=== PATIENT | male | born 1940 | race Caucasian/White ===

== ENCOUNTER → 2019-02-22 | Outpatient (CLI) | payer OTHER ==
[~2019-02-22] MED LIST: ALBU2.5V14 NEB; ALFU10TA3 PO; AMIO200T4 PO; APIX5TAB PO; ASPI81TA50 PO; BUDE10.2 IH; CHOL10003 PO; CYAN10005 PO; FINA5TAB4 PO; FOSI40TA4 PO; LEVO50TA5 PO; METF10007 PO; METF500T16 PO; POLY2500 PO; PSYL0.526 PO
--- NOTE | 2019-02-23 00:52 | PAIN ---
DATE OF SERVICE: 02/22/2019 INITIAL CONSULTATION FOR PAIN CLINIC CHIEF COMPLAINT: Low back and right lower extremity pain. HISTORY OF PRESENT ILLNESS: This is an 79-year-old male who presents with history of pain in the low back for many years, worse over the past 2 years or so. The patient reports his pain has been getting worse with walking, standing, changing positions, especially in the right side. It is a very sharp, aching pain that is dull, worse with standing and changing positions, better with sitting or lying down, does not awaken him from sleep at night, better with sleeping or lying down. It does not affect his bowel or bladder control, but does affect his ability to walk significantly. He is using a cane in his right hand to ambulate. The patient has had physical therapy. He has been doing some stretching and strengthening exercises on his own. The patient reports also that he has had facet joint injections and radiofrequency ablation at the [facility], of which neither one were helpful to decrease the pain on his right side. The patient reports he has had no other treatments at this time that he is aware of, except some epidural injections in the past. The patient is taking Tylenol up to 3000 mg a day, which decreased the pain only by about 20%. The patient describes the pain as aching and dull, sometimes shooting and stabbing in the right posterior hip, but generally not radiating to the leg further than the posterior gluteus. The patient rates his disability rate from 0-10, 10 being the worst and 8 with family home responsibilities, social activities, self-care and life support activities, and 1 with recreational activities. The patient did have MRI scan of the lumbar spine, demonstrating degenerative disk disease, with space narrowing at L4-L5 and L5-S1 more significantly, no disk herniation, with mild central canal stenosis at L2-L3 and moderate degenerative facet disease at L3 through L5-S1. PAST MEDICAL HISTORY: Significant for diabetes type 2, COPD, on home oxygen, hypertension, atrial fibrillation, and arthritis. PAST SURGICAL HISTORY: Previous lumbar surgery 15 years ago with left-sided symptoms at that time and previous hernia repair. CURRENT MEDICATIONS: Include metformin, psyllium, vitamin B12, vitamin D3, polyethylene glycol, alfuzosin, levothyroxine, fosinopril, finasteride, albuterol, amiodarone, Eliquis, Symbicort and daily baby aspirin, also Tylenol. FAMILY HISTORY: Significant for heart disease. SOCIAL HISTORY: The patient does not drink alcohol, does not smoke, and does not use any illegal, illicit or recreational drugs. He is single, lives locally and is currently retired. REVIEW OF SYSTEMS: The patient's review of systems is positive for those items mentioned in history of present illness. All systems reviewed and otherwise negative. It is complete, full and well documented on the patient's chart. PHYSICAL EXAMINATION: VITAL SIGNS: The patient's blood pressure is 145/79, pulse 62, respirations 18, temperature 97.8 degrees Fahrenheit. Height is 6 feet 2 inches, weight is 256 pounds. GENERAL: The patient is awake, alert, oriented, appropriate, very pleasant demeanor. HEENT: Head is normocephalic, atraumatic. Extraocular movements are intact and symmetrical. Oral cavity: Mucous membranes moist and pink. Dentition is intact. NECK: Shows anterior throat supple without palpable lymphadenopathy noted. Swallow reflex is symmetrical. CHEST: Shows normal with inspection. Breath sounds are clear to auscultation bilaterally. HEART: Shows S1, S2 clear. No murmurs auscultated. ABDOMEN: Obese, soft, nontender, nondistended. No palpable organomegaly is noted. No rebound or guarding demonstrated. BACK: Shows spine grossly in the midline, slight exaggeration of thoracic kyphosis and minor flattening of lumbar lordotic curvature. Lumbar paraspinous muscle shows symmetrical on inspection, with palpation shows some moderate tenderness inferiorly, more on the right than the left. No trigger points, no radiation of pain, no tenderness over the spinous processes. The patient has good rotational motion both laterally greater than 10 degrees right and left, as well as extension greater than 10 degrees, forward flexion 45 degrees without significant pain reported. Posterior superior iliac spine is severely tender on the right with palpation, but not the left. Also, the sacroiliac region on the right is very, very tender with palpation, but not on the left side. EXTREMITIES: The patient's lower extremities show deep tendon reflexes at 1+ in the patellar and tendo-calcaneus tendons. Motor exam is strong with 5/5 dorsiflexion, extension, quadriceps and hamstring flexion and symmetrical. Peripheral pulses are 1+ posterior tibial. No peripheral edema is noted. Lower extremities are warm and dry to touch, equal in color and appearance. The patient's Gaenslen's maneuver is positive on the right with posterior displacement and external rotation of the right hip and low back with leg over the bed, lower leg that is. Left side is negative. Percy's maneuvers are grossly negative bilaterally. The patient is able to stand, stand on his toes without significant loss of balance. He is using a cane in his right hand and does walk with a significant limp favoring his right lower extremity. SKIN: Shows warm and dry, good turgor. No edema. No sores, rashes or bruising. IMPRESSION: 1. This is an 79-year-old male with a long history of low back pain, status post lumbar surgery several years ago for left-sided radiculopathy, now with pain in the right sacroiliac joint consistent with sacroiliitis on the right side. 2. Arthritis. 3. Atrial fibrillation. 4. Hypertension. 5. Type 2 diabetes. 6. Anticoagulation therapy. PLAN: Options were discussed with the patient including conservative medical management, physical therapy, and interventional technique. He would like to pursue interventional techniques. We discussed a right-sided sacroiliac joint injection. 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 JAIMEE URIARTE MD DR: TRACEY/ely JOB#: [id number] / [id number]
== END | disposition home or self-care (01) ==
LOC: PNCL 08:14
PROVIDERS: ATTEND Anesthesiology
DX: M54.5 Low back pain (principal); M79.604 Pain in right leg; M19.90 Unspecified osteoarthritis, unspecified site; I48.91 Unspecified atrial fibrillation; I10 Essential (primary) hypertension; E11.9 Type 2 diabetes mellitus without complications; J44.9 Chronic obstructive pulmonary disease, unspecified; Z79.01 Long term (current) use of anticoagulants; Z99.81 Dependence on supplemental oxygen; Z98.890 Other specified postprocedural states; Z79.84 Long term (current) use of oral hypoglycemic drugs; Z79.899 Other long term (current) drug therapy
CPT/HCPCS: G0463

== ENCOUNTER → 2019-03-07 | Outpatient (CLI) | payer OTHER ==
[~2019-03-07] MED LIST changes: +BUPIVACAINE MPF 0.25% 10 ML VIAL. ONE; +CYAN-25 PO; -CYAN10005 PO; +IOHEXOL 180 MG/ML 10 ML VIAL. ONE; +methylPREDNISolone ACETATE 40 MG/ML VIAL. ONE; +methylPREDNISolone ACETATE 80 MG/ML VIAL. ONE
--- NOTE | 2019-03-08 03:49 | PAIN ---
DATE OF SERVICE: 03/07/2019 PROGRESS NOTE FOR PAIN CLINIC DIAGNOSES: 1. Bilateral sacroiliitis. 2. Lumbar degenerative disk disease. HISTORY OF PRESENT ILLNESS: The patient is an 79-year-old male who returns for followup status post initial evaluation and holding his Eliquis. He has been off of it for 3 days now and we were to proceed with bilateral sacroiliac joint injections. The patient reports his right side is much worse but his left side has become almost as bad since we last talked to him, which was 02/22/2019. The patient reports no new motor or sensory deficits, no new bowel or bladder incontinence or other complaints. The patient's pain is an 8 on a scale of 10 at its worst over the past week, 7 on average, 4 at its least and is a 7 today. It is aching, sharp, dull, burning, becoming more constant, worse with weightbearing, standing, walking or sitting for prolonged periods. The patient reports it has been awakening him from sleep and is a dull ache at night. PHYSICAL EXAMINATION: VITAL SIGNS: The patient's blood pressure 138/74, pulse 58, respirations are 18, temperature 97.7 degrees Fahrenheit, height is 6 feet 2 inches, weight is 253 pounds. GENERAL: The patient is awake, alert, oriented, appropriate, very pleasant demeanor. HEENT: Head is normocephalic, atraumatic. Extraocular movements are intact and symmetrical. Oral cavity: Mucous membranes moist and pink. Dentition is intact. NECK: Shows anterior throat supple. CHEST: Shows breath sounds clear to auscultation bilaterally. HEART: Shows S1, S2 clear. ABDOMEN: Soft, nontender, nondistended. BACK: Shows spine grossly in the midline, slight flattening of lumbar lordotic curvature. There is significant tenderness with palpation over the bilateral posterior superior iliac spines, especially the right, but also in the left, very severe pain over the superior aspect of the sacroiliac joint, but without specific radiation. The patient has good rotational motion of the lumbar spine, both laterally as well as extension and flexion without significant increase in pain. EXTREMITIES: Lower extremities show deep tendon reflexes at 1+ in the patellar and tendo-calcaneus tendons. Motor exam is strong with 5/5 dorsiflexion, extension and equal bilaterally. Peripheral pulses are 1+. No peripheral edema is noted bilaterally. Options were discussed with the patient. The patient's old chart was reviewed as his current medication regimen updated. Current review of systems updated today as well. We will proceed with bilateral sacroiliac joint injections using C-arm fluoroscopic guidance. Risks were again discussed including, but not limited to bleeding, infection, possibility of intravascular injection sequelae, spread of local anesthetic and numbness, side effects of steroid medication as well as exposure to fluoroscopy and poor results regarding pain control. The patient understands and wished to proceed. The patient will return to clinic in approximately 2 weeks for followup. She was counseled on return appointment, activity level and side effects to be aware of. DIAGNOSIS: Bilateral sacroiliitis. PROCEDURE: Bilateral sacroiliac joint injection using C-arm fluoroscopic guidance under sterile prep and drape using local anesthetic. MEDICATIONS INJECTED: A total of 120 mg of Depo-Medrol plus total of 6 mL of 0.25% bupivacaine and total of 3 mL of contrast. CONDITION AT DISCHARGE: Stable. The patient tolerated the procedure well, had no complications. JAIMEE URIARTE MD DR: TRACEY/ely JOB#: [id number] / [id number]
== END ==
LOC: PNCL 08:48
PROVIDERS: ATTEND Anesthesiology
DX: M46.1 Sacroiliitis, not elsewhere classified (principal); M51.36 Other intervertebral disc degeneration, lumbar region
CPT/HCPCS: 27096; J1030; J1040; J3490; Q9965; G0260

== ENCOUNTER → 2019-04-13 | Outpatient (CLI) | payer OTHER ==
[~2019-04-13] MED LIST changes: -IOHEXOL 180 MG/ML 10 ML VIAL. ONE; -methylPREDNISolone ACETATE 80 MG/ML VIAL. ONE
--- NOTE | 2019-04-14 00:08 | PAIN ---
DATE OF SERVICE: 04/13/2019 PROGRESS NOTE FOR PAIN CLINIC DIAGNOSES: 1. Bilateral sacroiliitis. 2. Lumbar degenerative disk disease. 3. Myofascial pain. HISTORY OF PRESENT ILLNESS: The patient is an 79-year-old male who returns for followup status post bilateral sacroiliac joint injections about 2 weeks ago. The patient reports still significant pain in the low back, but only on the right side at this time. The patient reports it is much more noticeable with walking, standing, changing positions, and sitting for more than 15-20 minutes. The patient reports it is worse with first thing in the morning, getting up out of bed, also with walking and changing positions or bending. The patient reports he has a burning pain, sharp and aching in the low back and the right side mostly. The patient reports his pain over the last week has been 7 on a scale of 10 at its worst, 4 on an average, 2 at its least, and is a 2 today. The patient reports it is better with sitting or lying down, does not awaken from sleep at night, and does not cause any loss of bowel or bladder incontinence. The patient reports that the sacroiliac joint injections were only very minimally improving the pain, but only for a few days after the injections. PHYSICAL EXAMINATION: VITAL SIGNS: Today, the patient's blood pressure is 141/70, pulse 78, respirations are 18, temperature 97.8 degrees Fahrenheit, height is 6 feet 2 inches, and weight is 234 pounds. GENERAL: The patient is awake, alert, oriented, appropriate, and very pleasant demeanor. HEENT: Shows normocephalic and atraumatic. Extraocular movements are intact and symmetrical. Oral cavity: Mucous membranes moist and pink. Dentition is intact. NECK: Shows anterior throat is supple without palpable lymphadenopathy noted. Swallow reflex symmetrical. CHEST: Shows normal on inspection. Breath sounds are clear to auscultation bilaterally. HEART: Shows S1, S2 clear. No murmurs auscultated. ABDOMEN: Soft, nontender, and nondistended. No palpable organomegaly is noted. No rebound or guarding demonstrated. BACK: Shows spine grossly in the midline. Normal appearing thoracic kyphosis and lumbar lordotic curvature. Lumbar paraspinous muscle shows symmetrical on inspection, on palpation shows some moderate tenderness diffusely in the right lumbar paraspinous musculature, is very firm rope-like musculature on the right side only compared to the left without specific radiation, but with significant pain with palpation. The patient shows good rotational motion; however, the lumbar spine both laterally as well as extension and flexion without significant increase in pain. EXTREMITIES: The patient's lower extremities show deep tendon reflexes 1+ in the patellar and tendo calcaneus tendons. Motor exam is strong with 5/5 dorsiflexion and extension, quadriceps, and hamstring flexion is symmetrical. Peripheral pulses are 1+ posterior tibia. No peripheral edema is noted. Options were discussed with the patient. The patient's old chart was reviewed as his current medication regimen updated and current review of systems updated today as well, and we will proceed with trigger point injections of the right paraspinous musculature and right gluteus musculature as identified. Risks were discussed including, but not limited to bleeding, infection, possibility of intravascular injection sequelae, spread of local anesthetic and numbness, side effects of steroid medication and poor results regarding pain control. The patient understands and wishes to proceed. The patient will return to clinic in approximately 2 weeks for followup. He was counseled on return appointment, activity level, and side effects to be aware of. DIAGNOSIS: Myofascial pain. PROCEDURE: Trigger point injections, right-sided lumbar paraspinous musculature and right-sided gluteus under sterile prep and drape using local anesthetic. MEDICATION INJECTED: A total of 6 mL of 0.25% bupivacaine and 40 mg total of Depo-Medrol after negative aspiration at each injection. CONDITION AT DISCHARGE: Stable. The patient tolerated the procedure well, had no complications. JAIMEE URIARTE MD DR: TRACEY/ely JOB#: [id number] / [id number]
== END ==
LOC: PNCL 11:04
PROVIDERS: ATTEND Anesthesiology
DX: M79.18 Myalgia, other site (principal); M46.1 Sacroiliitis, not elsewhere classified; M51.36 Other intervertebral disc degeneration, lumbar region
CPT/HCPCS: 20553; J1030; J3490

== ENCOUNTER → 2019-05-02 | Outpatient (CLI) | payer OTHER ==
[~2019-05-02] MED LIST changes: +IOHEXOL 180 MG/ML 10 ML VIAL. ONE; +LIDOCAINE 1% PF 2 ML VIAL. ONE; -methylPREDNISolone ACETATE 40 MG/ML VIAL. ONE; +methylPREDNISolone ACETATE 80 MG/ML VIAL. ONE
--- NOTE | 2019-05-02 14:13 | PAIN ---
DATE OF SERVICE: 05/02/2019 PROGRESS NOTE FOR PAIN CLINIC DIAGNOSES: 1. Bilateral sacroiliitis. 2. Lumbar degenerative disk disease. 3. Myofascial pain. 4. Right knee joint pain with osteoarthritis. HISTORY OF PRESENT ILLNESS: The patient is an 79-year-old male who returns for followup status post trigger point injections with about a 75% improvement. The patient reports some pain in the right posterior hip, but only minimal. The patient reports his chief complaint today is his right knee, which we discussed with him on his last visit. Significant pain with walking, standing, changing positions, especially putting all his weight on his right leg such as in case stepping on the stair or curb and significant pain with ambulation. The patient reports it is better with lying down, sitting, even with getting the weight off of his knee, the pain is almost gone. The patient reports the pain is worse with 4 on a scale of 10, over the past week average 4 and a 3 at its least and is a 4 today. The patient reports it is sharp, aching, dull and burning at times, again with weightbearing much worse. No new motor or sensory deficits; however, no new bowel or bladder incontinence or other complaints. PHYSICAL EXAMINATION: VITAL SIGNS: The patient's blood pressure 122/68, pulse 62, respirations 18, temperature 97.8 degrees Fahrenheit, height is 6 feet 2 inches, weight is 248 pounds. GENERAL: The patient is awake, alert, oriented, appropriate, very pleasant demeanor. HEENT: Shows normocephalic, atraumatic. Extraocular movements are intact and symmetrical. Oral cavity: Mucous membranes moist and pink. Dentition is intact. NECK: Shows anterior throat supple without palpable lymphadenopathy noted. Swallow reflex symmetrical. CHEST: Shows normal on inspection. Breath sounds clear to auscultation bilaterally. HEART: Shows S1, S2 clear. No murmurs auscultated. ABDOMEN: Soft, nontender, nondistended. No palpable organomegaly is noted. No rebound or guarding demonstrated. BACK: Shows spine grossly in the midline. Lumbar paraspinous muscle shows symmetrical on inspection, with palpation shows some moderate tenderness diffusely bilaterally, but only diffusely. No specific trigger point regions are identified, but some mild tenderness over the posterior superior iliac spine on the right and left, but only mildly with deep palpation. EXTREMITIES: The patient's lower extremities show deep tendon reflexes 1+ in the patellar and tendo calcaneus tendons. Motor exam is strong with 5/5 dorsiflexion, extension, quadriceps and hamstring flexion and equal. The patient's right knee shows some moderate tenderness with palpation over the medial collateral ligament with deep palpation, but no radiation. Left side is nontender. The patient has good range of motion, both actively and passively in the right knee without ratcheting or crepitus. Peripheral pulses are 1+ posterior tibia. No peripheral edema is noted bilaterally. Options were discussed with the patient. The patient's old chart was reviewed as his current medication regimen updated. Current review of systems updated today as well. We will proceed with a right intra-articular knee joint injection today with fluoroscopic guidance. Risks were again discussed including, but not limited to bleeding, infection, possibility of intravascular injection sequelae, spread of local anesthetic and numbness, side effects of steroid medication, exposure to fluoroscopy and poor results regarding pain control. The patient understands and wished to proceed. The patient will return to clinic in approximately 2 weeks for followup. She was counseled on return appointment, activity level and side effects to be aware of. 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 PROCEDURE: Right intra-articular knee joint injection using C-arm fluoroscopic guidance under sterile prep and drape using local anesthetic. MEDICATION INJECTED: A total of 3 mL of 0.25% bupivacaine, 80 mg Depo-Medrol and 1.5 mL of contrast. CONDITION AT DISCHARGE: Stable. The patient tolerated the procedure well, had no complications. JAIMEE URIARTE MD DR: TRACEY/ely JOB#: [id number] / [id number]
== END ==
LOC: PNCL 10:04
PROVIDERS: ATTEND Anesthesiology
DX: M17.11 Unilateral primary osteoarthritis, right knee (principal); M46.1 Sacroiliitis, not elsewhere classified; M79.18 Myalgia, other site; M51.36 Other intervertebral disc degeneration, lumbar region
CPT/HCPCS: 20610; 77002; J1040; J3490; Q9965

== ENCOUNTER → 2019-06-22 | Outpatient (CLI) | payer OTHER ==
[~2019-06-22] MED LIST changes: -BUPIVACAINE MPF 0.25% 10 ML VIAL. ONE; -IOHEXOL 180 MG/ML 10 ML VIAL. ONE; -LIDOCAINE 1% PF 2 ML VIAL. ONE; -methylPREDNISolone ACETATE 80 MG/ML VIAL. ONE
--- NOTE | 2019-06-23 01:12 | PAIN ---
DATE OF SERVICE: 06/22/2019 PROGRESS NOTE FOR PAIN CLINIC DIAGNOSES: 1. Bilateral sacroiliitis. 2. Lumbar radiculopathy with lumbar degenerative disk disease. 3. Myofascial pain. 4. Right knee joint pain with osteoarthritis. HISTORY OF PRESENT ILLNESS: The patient is an 79-year-old male who returns for followup status post both sacroiliac joint injections, trigger point injections and right knee injection. The patient reports his right knee is doing very well with near 100% improved, still some pain in the low back radiating down into the right lower extremity, posterior gluteus, posterior thighs, posterior calf, which is becoming more noticeable when he is walking only. The patient reports it is only on the right side, better with sitting or lying down, does not awaken her from sleep at night, but much worse with walking, standing, radiating ____ he can walk to stand for about 10-15 minutes. The patient reports it is aching pain that is shooting and sharp and dull in the back, radiating, becoming more constant in the right lower extremity. The patient reports it is 7 on a scale of 10 at its worst over the past week, 6 on average, 6 at its least and is 6 today. PHYSICAL EXAMINATION: VITAL SIGNS: The patient's blood pressure is 136/65, pulse 56, respirations 18, temperature 98.2 degrees Fahrenheit, height 6 feet 2 inches, weight is 248 pounds. GENERAL: The patient is awake, alert, oriented, appropriate, very pleasant demeanor. HEENT: Head shows normocephalic, atraumatic. Extraocular movements are intact and symmetrical. Oral cavity: Mucous membranes moist and pink. Dentition is intact. NECK: Shows anterior throat supple without palpable lymphadenopathy noted. Swallow reflex symmetrical. CHEST: Shows normal on inspection. Breath sounds are clear bilaterally. HEART: Shows S1, S2 clear. No murmurs auscultated. ABDOMEN: Soft, nontender, nondistended. No palpable organomegaly is noted. No rebound or guarding demonstrated. BACK: Shows spine grossly in the midline. Normal appearing thoracic kyphosis and lumbar lordotic curvature. The patient's lumbar paraspinous muscle shows symmetrical on inspection, on palpation shows some moderate tenderness diffusely bilaterally, more on the right than the left, but symmetrical with some mild tenderness over the sacroiliac regions as well, but only mildly without radiation. EXTREMITIES: Lower extremities show deep tendon reflexes 1+ in the patellar and tendo-calcaneus tendons. Motor exam is strong with 5/5 dorsiflexion, extension, quadriceps and hamstring flexion. Peripheral pulses are 1+ posterior tibia. No peripheral edema is noted. Options were discussed with the patient. The patient's old chart was reviewed as his current medication regimen updated. Current review of systems updated today as well. 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 The patient will continue with stretching and strengthening exercises on his own and activity as tolerated. We will have him return once Eliquis held for lumbar epidural steroid injection at that time. JAIMEE URIARTE MD DR: TRACEY/ely JOB#: [id number] / [id number]
== END | disposition home or self-care (01) ==
LOC: PNCL 09:09
PROVIDERS: ATTEND Anesthesiology
DX: M51.16 Intervertebral disc disorders with radiculopathy, lumbar region (principal); M79.18 Myalgia, other site; M46.1 Sacroiliitis, not elsewhere classified; M17.11 Unilateral primary osteoarthritis, right knee
CPT/HCPCS: G0463

== ENCOUNTER → 2019-07-06 | Outpatient (CLI) | payer OTHER ==
[~2019-07-06] MED LIST changes: -ALFU10TA3 PO; +ALFU10TA4 PO; +IOHEXOL 180 MG/ML 10 ML VIAL. ONE; +methylPREDNISolone ACETATE 40 MG/ML VIAL. ONE; +methylPREDNISolone ACETATE 80 MG/ML VIAL. ONE
--- NOTE | 2019-07-06 09:03 | PAIN ---
DATE OF SERVICE: 07/06/2019 PROGRESS NOTE FOR PAIN CLINIC DIAGNOSES: Lumbar radiculopathy with lumbar degenerative disk disease and lumbar spondylosis. HISTORY OF PRESENT ILLNESS: The patient is an 79-year-old male, who returns for followup, status post evaluation after right knee joint injection, was doing very well after that with also trigger point injections. We had gained clearance to hold his Eliquis for 3 days. As it has been obtained now, he has held it for 3 days, he would like to proceed with lumbar epidural steroid injection. He still reports pain in the low back, right lower extremity, posterior gluteus, posterior thigh, posterior calf, and mostly in the right side with some on the left as well. The patient reports it is a 6 on a scale of 10 at its worst over the past week, 5 on average, 5 at its least and is a 5 today. The patient reports it is sharp and aching, shooting, dull, worse with walking, standing, change in positions. The patient reports it is better with sitting or lying down. He is using a walker to ambulate. Reports it does not awaken him from sleep at night. PHYSICAL EXAMINATION: VITAL SIGNS: The patient's blood pressure 125/66, pulse 60, respirations 18, temperature is 98.3 degrees Fahrenheit, height 6 feet 2 inches, weight is 251 pounds. GENERAL: The patient is awake, alert, oriented, appropriate. He has a very pleasant demeanor. HEENT: Head shows normocephalic, atraumatic. Extraocular movements are intact and symmetrical. Oral cavity: His mucous membranes are moist and pink. Dentition is intact. NECK: Shows anterior throat supple without palpable lymphadenopathy noted. Swallow reflex symmetrical. CHEST: Shows normal on inspection. Breath sounds clear to auscultation bilaterally. HEART: Shows S1, S2 clear. No murmurs auscultated. ABDOMEN: Soft, nontender, nondistended. No palpable organomegaly is noted. No rebound or guarding demonstrated. BACK: Shows spine grossly in the midline. Normal-appearing thoracic kyphosis. Minor flattening of lumbar lordotic curvature with well-healed surgical scarring noted in the lumbar distribution. Paraspinous muscle shows symmetrical on inspection. On palpation, he has some moderate tenderness diffusely bilaterally and diffusely without significant radiation. The patient has good rotational motion of lumbar spine, both laterally as well as extension and flexion without significant increase in pain. EXTREMITIES: Lower extremities show deep tendon reflexes at 1+ in the patellar and tendo-calcaneus tendons. Motor exam is 5/5 with dorsiflexion, extension, quadriceps and hamstring flexion symmetrical. Peripheral pulses are 1+ posterior tibia. No peripheral edema is noted bilaterally. Options were discussed with the patient. The patient's old chart was reviewed as his current medication regimen updated. Current review of systems updated today as well. We will proceed with a lumbar epidural steroid injection today with fluoroscopic guidance. Risks were again discussed, including, but not limited to bleeding, infection, possibility of epidural hematoma, subsequent neurological compromise, dural puncture, headaches, spinal cord and/or nerve damage, side effects of steroid medication, and poor results regarding pain control. The patient understands and wished to proceed. The patient will return to the clinic in approximately 2 weeks for followup. He was counseled on return appointment, activity level, and side effects to be aware of. DIAGNOSES: Lumbar radiculopathy with lumbar degenerative disk disease, lumbar spondylosis, and post-lumbar laminectomy syndrome. PROCEDURE: Lumbar epidural steroid injection, translaminar approach L5-S1 level using C-arm fluoroscopic guidance under sterile prep and drape using local anesthetic. MEDICATION INJECTED: A total of 120 mg Depo-Medrol plus 10 mL of preservative-free normal saline and 2 mL of contrast. CONDITION AT DISCHARGE: Stable. The patient tolerated the procedure well, had no complications. JAIMEE URIARTE MD DR: TRACEY/ely JOB#: [id number] / [id number]
== END ==
LOC: PNCL 07:56
PROVIDERS: ATTEND Anesthesiology
DX: M51.16 Intervertebral disc disorders with radiculopathy, lumbar region (principal); M47.816 Spondylosis without myelopathy or radiculopathy, lumbar region; M96.1 Postlaminectomy syndrome, not elsewhere classified
CPT/HCPCS: 62323; J1030; J1040; Q9965

== ENCOUNTER → 2019-08-29 | Outpatient (CLI) | payer OTHER ==
--- NOTE | 2019-08-29 11:01 | PAIN ---
DATE OF SERVICE: 08/29/2019 PROGRESS NOTE FOR PAIN CLINIC DIAGNOSES: 1. Lumbar radiculopathy with lumbar degenerative disk disease and lumbar post-laminectomy syndrome. 2. Bilateral sacroiliitis. 3. Myofascial pain. 4. Right knee joint pain with osteoarthritis. HISTORY OF PRESENT ILLNESS: The patient is an 79-year-old male who returns for followup status post lumbar epidural steroid injection x 1 on 07/06/2019. The patient reports only minimal decrease in pain, still significant radicular pain in the right lower extremity, posterior gluteus, across the low back into the posterior thigh and calf. The patient reports it is an 8 on a scale of 10 at its worst, 7 on average, 4 at its least, and is a 7 today. It is worse with walking, standing, changing positions; better with sitting or lying down; does not bother him when he is sitting or lying down, does not awaken him from sleep at night. The patient still has trouble with ambulation; however, is using a walker. The patient reports the pain is radiating, aching, dull, sharp, and shooting in the right leg. No new motor or sensory deficits, no new bowel or bladder incontinence. PHYSICAL EXAMINATION: VITAL SIGNS: The patient's blood pressure 114/64, pulse 60, respirations 18, temperature 98.0 degrees Fahrenheit, height 6 feet 2 inches, weight is 254 pounds. GENERAL: The patient is awake, alert, oriented, appropriate, very pleasant demeanor. HEENT: Shows normocephalic, atraumatic. Extraocular movements are intact and symmetrical. Oral cavity: Mucous membranes moist and pink. Dentition is intact. NECK: Shows anterior throat supple without palpable lymphadenopathy noted. Swallow reflex symmetrical. CHEST: Shows normal on inspection. Breath sounds are clear bilaterally. HEART: Shows S1, S2 clear. No murmurs auscultated. ABDOMEN: Soft, nontender, nondistended. BACK: Shows spine grossly in the midline. Slight exaggeration of thoracic kyphosis and minor flattening of lumbar lordotic curvature with well-healed surgical scar noted. Lumbar paraspinous muscle shows symmetrical on inspection, on palpation shows some moderate tenderness diffusely bilaterally going diffusely without significant radiation. The patient does show good rotational motion of lumbar spine, both laterally greater than 10 degrees right and left as well as extension greater than 10 degrees, forward flexion 45 degrees without significant pain reported. EXTREMITIES: The patient's lower extremities show deep tendon reflexes at 1+ in the patellar and tendo calcaneus tendons. Motor exam is strong with 5/5 dorsiflexion, extension equal. Peripheral pulses are 1+ posterior tibial. No peripheral edema is noted. Options were discussed with the patient. The patient's old chart was reviewed as his current medication regimen updated. Current review of systems updated today as well. We will proceed with second in a series of lumbar epidural steroid injections today with fluoroscopic guidance. Risks were again discussed including, but not limited to bleeding, infection, possibility of epidural hematoma, subsequent neurological compromise, dural puncture, headaches, spinal cord and/or nerve damage, side effects of steroid medication and poor results regarding pain control. The patient understands and wished to proceed. The patient will return to clinic in approximately 2 weeks for followup. He was counseled as to return appointment, activity level, and side effects to be aware of. DIAGNOSIS: Lumbar radiculopathy with lumbar degenerative disk disease and lumbar post-laminectomy syndrome. PROCEDURE: Lumbar epidural steroid injection, translaminar approach at the L5-S1 level using C-arm fluoroscopic guidance under sterile prep and drape using local anesthetic. MEDICATION INJECTED: A total of 120 mg Depo-Medrol plus 10 mL of preservative-free normal saline and 2 mL of contrast. CONDITION AT DISCHARGE: Stable. The patient tolerated procedure well, had no complications. JAIMEE URIARTE MD DR: TRACEY/ely JOB#: [id number] / [id number]
== END | disposition home or self-care (01) ==
LOC: PNCL 09:12
PROVIDERS: ATTEND Anesthesiology
DX: M51.16 Intervertebral disc disorders with radiculopathy, lumbar region (principal); M96.1 Postlaminectomy syndrome, not elsewhere classified; M46.1 Sacroiliitis, not elsewhere classified; M17.11 Unilateral primary osteoarthritis, right knee; M79.18 Myalgia, other site; Z98.890 Other specified postprocedural states; Z88.8 Allergy status to other drugs, medicaments and biological substances
CPT/HCPCS: 62323; J1030; J1040; Q9965

== ENCOUNTER → 2019-09-21 | Outpatient (CLI) | payer OTHER ==
--- NOTE | 2019-09-21 12:49 | PAIN ---
DATE OF SERVICE: 09/21/2019 PROGRESS NOTE FOR PAIN CLINIC DIAGNOSES: Lumbar radiculopathy with lumbar degenerative disk disease and lumbar post-laminectomy syndrome. HISTORY OF PRESENT ILLNESS: The patient is an 79-year-old male who returns for followup status post lumbar epidural steroid injection x 2. The patient reports about 50% improvement for a few weeks after the injection, but the pain is returning now in the low back and the right lower extremity, posterior gluteus, posterior thigh, posterior calf, mostly in the back and the right side of the thigh and hip. The patient reports it is a 7 on a scale of 10 at its worst, 7 on average, 6 at its least and is a 7 today. The patient reports no new motor or sensory deficits, does not bother him when he is sitting or lying down, generally worse with walking, standing, change in positions, initially was walking greater distances, doing household activities with greater ease and comfort, still using his walker to ambulate, has it with him today as well. The patient reports no new motor or sensory deficits, no new bowel or bladder incontinence or other complaints. PHYSICAL EXAMINATION: VITAL SIGNS: The patient's blood pressure is 137/71, pulse 67, respirations 16, temperature 98.2 degrees Fahrenheit, weight is 251 pounds. GENERAL: The patient is awake, alert, oriented, appropriate, very pleasant demeanor. HEENT: Head shows normocephalic, atraumatic. Extraocular movements are intact and symmetrical. Oral cavity: Mucous membranes moist and pink. Dentition is intact. NECK: Shows anterior throat supple without palpable lymphadenopathy noted. Swallow reflex symmetrical. CHEST: Shows normal on inspection. Breath sounds are clear bilaterally. HEART: Shows S1, S2 clear. No murmurs auscultated. ABDOMEN: Soft, obese, nontender, nondistended. BACK: Shows spine grossly in the midline. Normal appearing thoracic kyphosis and lumbar lordotic curvature slightly flattened with well-healed surgical scar in the lumbar distribution. Lumbar paraspinous muscle shows symmetrical on inspection, with palpation shows some mild tenderness diffusely in the low lumbar distribution bilaterally, but only diffusely without radiation. The patient has good rotational motion of lumbar spine, both laterally as well as extension and flexion without significant difficulty. EXTREMITIES: Lower extremities show deep tendon reflexes 1+ in the patellar and tendo-calcaneus tendons are equal. Motor exam is strong with 5/5 dorsiflexion, extension, quadriceps and hamstring flexion symmetrical. Peripheral pulses are 1+. No peripheral edema is noted bilaterally. Options were discussed with the patient. The patient's old chart was reviewed as his current medication regimen updated. Current review of systems updated today as well. We will proceed with a third in the series of lumbar epidural steroid injection today with fluoroscopic guidance. Risks were again discussed including, but not limited to bleeding, infection, possibility of epidural hematoma, subsequent neurological compromise, dural puncture, headaches, spinal cord and/or nerve damage, side effects of steroid medication and poor results regarding pain control. The patient understands and wished to proceed. The patient will return to clinic in approximately 2 weeks for followup. He was counseled on return appointment, activity level and side effects to be aware of. PROCEDURE: Lumbar epidural steroid injection, translaminar approach at L5-S1 level using C-arm fluoroscopic guidance under sterile prep and drape using local anesthetic. MEDICATION INJECTED: A total of 120 mg Depo-Medrol plus 10 mL of preservative-free normal saline and 2 mL of contrast. CONDITION AT DISCHARGE: Stable. The patient tolerated the procedure well, had no complications. JAIMEE URIARTE MD DR: TRACEY/ely JOB#: [id number] / [id number]
== END ==
LOC: PNCL 08:52
PROVIDERS: ATTEND Anesthesiology
DX: M51.16 Intervertebral disc disorders with radiculopathy, lumbar region (principal); M96.1 Postlaminectomy syndrome, not elsewhere classified
CPT/HCPCS: 62323; J1030; J1040; Q9965

== ENCOUNTER → 2020-01-10 | Outpatient (CLI) | payer OTHER ==
[~2020-01-10] MED LIST changes: +BUPIVACAINE MPF 0.25% 10 ML VIAL. ONE; -methylPREDNISolone ACETATE 40 MG/ML VIAL. ONE
--- NOTE | 2020-01-10 11:56 | PAIN ---
DATE OF SERVICE: 01/10/2020 PROGRESS NOTE FOR PAIN CLINIC DIAGNOSES: 1. Lumbar radiculopathy with lumbar degenerative disk disease and lumbar post-laminectomy syndrome. 2. Bilateral sacroiliitis. 3. Myofascial pain. 4. Right knee joint pain with osteoarthritis. HISTORY OF PRESENT ILLNESS: The patient is an 79-year-old male who returns for followup status post lumbar epidural steroid injection, 09/21. The patient reports he did fairly well, but the pain is now changed, is in the low back and the hip more than the back and leg with a burning sensation, worse with changing positions, worse with getting up out of bed in the morning, worse with walking and standing, better with sitting or lying down, generally does not awaken him from sleep, but can if he turns onto his right side. The patient reports it is a 9 on a scale of 10 at its worst over the past week, 7 on average, 5 at its least and is a 7 today. The patient reports some burning pain, it is aching and sharp, radiating into the hip, but not further into the lower leg. The patient reports no new motor or sensory deficits, no new bowel or bladder incontinence. PHYSICAL EXAMINATION: VITAL SIGNS: The patient's blood pressure 110/58, pulse 58, respirations 20, temperature 98.2 degrees Fahrenheit, weight is 252 pounds. GENERAL: The patient is awake, alert, oriented, appropriate, very pleasant demeanor. HEENT: Shows normocephalic, atraumatic. The patient wears eyeglasses. Extraocular movements are intact and symmetrical. Oral cavity: Mucous membranes moist and pink. Dentition is intact. NECK: Shows anterior throat supple without palpable lymphadenopathy noted. Swallow reflex symmetrical. CHEST: Shows normal on inspection. Breath sounds are clear bilaterally. HEART: Shows S1, S2 clear. No murmurs auscultated. ABDOMEN: Obese, soft, nontender, nondistended. No palpable organomegaly is noted. BACK: Shows spine grossly in the midline. Slight exaggeration of thoracic kyphosis and some minor flattening of lumbar lordotic curvature with well-healed surgical scar in the lumbar distribution. Lumbar paraspinous muscle shows symmetrical on inspection, with palpation shows some mild tenderness in the low lumbar distribution only bilaterally, but without radiation, without trigger points or asymmetry. The patient has good rotational motion of lumbar spine, both laterally as well as extension and flexion without significant difficulty or pain reported. The patient's right sacroiliac joint, however, is significantly tender with palpation over the posterior superior iliac spine as well as the sacroiliac joint, the superior aspect itself, left side is only very minimally painful. EXTREMITIES: The patient's lower extremities show deep tendon reflexes 1+ in the patellar and tendo calcaneus tendons. Motor exam is strong with 5/5 dorsiflexion, extension, quadriceps and hamstring flexion symmetrical. Peripheral pulses are 1+ posterior tibial. Options were discussed with the patient. The patient's old chart was reviewed as his current medication regimen updated. Current review of systems updated today as well and we will proceed with a right sacroiliac joint injection today with fluoroscopic guidance. Risks were again discussed including, but not limited to bleeding, infection, possibility of intravascular injection sequelae, spread of local anesthetic and numbness, side effects of steroid medication and poor results regarding pain control. The patient understands and wished to proceed. The patient will return to clinic in approximately 2 weeks for followup. He was counseled as to return appointment, activity level and side effects to be aware of. DIAGNOSIS: Right sacroiliitis. PROCEDURE: Right sacroiliac joint injection using C-arm fluoroscopic guidance under sterile prep and drape using local anesthetic. MEDICATION INJECTED: A total of 80 mg Depo-Medrol plus 3 mL of 0.25% bupivacaine and 1.5 mL of contrast. CONDITION AT DISCHARGE: Stable. The patient tolerated procedure well, had no complications. JAIMEE URIARTE MD DR: TRACEY/ely JOB#: [id number] / [id number]
== END ==
LOC: PNCL 08:49
PROVIDERS: ATTEND Anesthesiology
DX: M46.1 Sacroiliitis, not elsewhere classified (principal); M51.16 Intervertebral disc disorders with radiculopathy, lumbar region; M96.1 Postlaminectomy syndrome, not elsewhere classified; M79.18 Myalgia, other site
CPT/HCPCS: 27096; J1040; J3490; Q9965

== ENCOUNTER → 2020-02-05 | Outpatient (CLI) | payer OTHER ==
--- NOTE | 2020-02-05 10:02 | PAIN ---
DATE OF SERVICE: 02/05/2020 PROGRESS NOTE FOR PAIN CLINIC DIAGNOSES: 1. Lumbar radiculopathy with lumbar degenerative disk disease and lumbar post-laminectomy syndrome. 2. Bilateral sacroiliitis. 3. Myofascial pain. 4. Right knee joint pain. 5. Right greater trochanteric bursitis. HISTORY OF PRESENT ILLNESS: The patient is an 79-year-old male who returns for followup status post previous right sacroiliac joint injection before that lumbar epidural steroid injection. The patient reports still having significant pain and has changed to some degree in the right leg, now is more on the lateral aspect of his hip and the superior medial aspect of the hip. The sacroiliac joint is feeling much better after his last injection, but the pain is now different. It is radiating down the side of his right thigh to about the mid thigh on the right side. The patient reports it is worse with walking, standing, changing positions, putting all his weight on his right leg. Does not radiate into the groin; however, but is on the lateral side of the leg and is very tender to point tenderness on the right side of the hip. The patient reports it is 7 on a scale of 10 at its worst over the past week, 6 on average, 5 at its least and is a 6 today. The patient reports it is becoming more constant and sharp and aching alternating on the right side with greater pressure and weight on his leg. The patient reports no new motor or sensory deficits, no new bowel or bladder incontinence. PHYSICAL EXAMINATION: VITAL SIGNS: The patient's blood pressure 104/64, pulse 64, respirations 16, temperature 98.6 degrees Fahrenheit, weight is 254 pounds. GENERAL: The patient is awake, alert, oriented, appropriate, very pleasant demeanor. HEENT: Shows normocephalic, atraumatic. The patient is wearing eyeglasses. Extraocular movements are intact and symmetrical. Oral cavity: Mucous membranes moist and pink. NECK: Shows anterior throat supple. Neck shows full rotational motion of cervical spine, both laterally as well as extension and flexion without difficulty. CHEST: Shows normal on inspection. Breath sounds are clear bilaterally. HEART: Shows S1, S2 clear. No murmurs auscultated. ABDOMEN: Obese, soft, nontender, nondistended. BACK: Shows spine grossly in the midline. Slight exaggeration of thoracic kyphosis and flattening of lumbar lordotic curvature with well-healed surgical scarring noted. Lumbar paraspinous muscle shows symmetrical with palpation and some mild tenderness, but only diffusely throughout the upper, middle and lower distribution of paraspinous muscles, very mild tenderness over the posterior superior iliac spine on the right, but no tenderness on the left and no significant tenderness with deep palpation on the sacroiliac joints bilaterally. EXTREMITIES: The patient's lower extremities show deep tendon reflexes at 1+ in the patellar and tendo calcaneus tendons. Motor exam is strong with 5/5 dorsiflexion, extension, quadriceps and hamstring flexion. The patient has significant tenderness; however, over the right greater trochanter with severe pain and tenderness over this lateral trochanter, slightly medial and superior to the trochanter as well with some muscular tension and very firm rope-like musculature in this area of the lateral thigh. Options were discussed with the patient. The patient's old chart was reviewed as his current medication regimen updated. Current review of systems updated today as well. We will proceed with a right greater trochanteric bursa injection today with fluoroscopic guidance. Risks were discussed including but not limited to bleeding, infection, possibility of intravascular injection sequelae, spread of local anesthetic and numbness, side effects of steroid medication, exposure to fluoroscopy and poor results regarding pain control. The patient understands and wished to proceed. The patient will return to clinic in approximately 2 weeks for followup. He was counseled on return appointment, activity level and side effects to be aware of. DIAGNOSIS: Right greater trochanteric bursitis. PROCEDURE: Right greater trochanteric bursa injection using C-arm fluoroscopic guidance under sterile prep and drape using local anesthetic. MEDICATION INJECTED: A total of 80 mg Depo-Medrol plus 5 mL of 0.25% bupivacaine and 1.5 mL of contrast. CONDITION AT DISCHARGE: Stable. The patient tolerated procedure well, had no complications. JAIMEE URIARTE MD DR: TRACEY/ely JOB#: [id number] / [id number]
== END ==
LOC: PNCL 09:07
PROVIDERS: ATTEND Anesthesiology
DX: M70.61 Trochanteric bursitis, right hip (principal); M46.1 Sacroiliitis, not elsewhere classified; M51.16 Intervertebral disc disorders with radiculopathy, lumbar region; M96.1 Postlaminectomy syndrome, not elsewhere classified; M79.81 Nontraumatic hematoma of soft tissue
CPT/HCPCS: 20605; 77002; J1040; J3490; Q9965

== ENCOUNTER → 2020-02-20 | Outpatient (CLI) | payer OTHER ==
[~2020-02-20] MED LIST changes: -BUPIVACAINE MPF 0.25% 10 ML VIAL. ONE; +methylPREDNISolone ACETATE 40 MG/ML VIAL. ONE
--- NOTE | 2020-02-20 10:03 | PAIN ---
DATE OF SERVICE: 02/20/2020 PROGRESS NOTE FOR PAIN CLINIC DIAGNOSES: 1. Lumbar radiculopathy with lumbar degenerative disk disease and lumbar post-laminectomy syndrome. 2. Bilateral sacroiliitis. 3. Myofascial pain. 4. Right knee joint pain with osteoarthritis. 5. Right greater trochanteric bursitis. HISTORY OF PRESENT ILLNESS: The patient is an 80-year-old male who returns for followup status post right greater trochanteric bursa injection with only minimal decrease in pain. The patient reports his pain now is in the back, radiating to posterior gluteus, lateral thigh, lateral calf into the ankle on the right side, worse with walking, standing and weightbearing. The patient reports it is mostly on the side, but some on the front and very little on the back of the calf and on the back of the thigh. Certainly, the patient reports the pain is a 9 on a scale of 10 at its worst over the past week, 9 on average, 7 at its least and is a 9 today. The patient reports it is burning, aching, sharp, shooting, cramping at times in the leg with significant tenderness with weightbearing. The patient reports he is still sleeping fairly well, does not awaken him from sleep at night, but has significant pain in the back and the right leg as previously. The patient reports the hip is still fairly tender, but not like it was, but the pain is more in the leg and radiating at this time, and just in the lateral hip. The patient reports no new motor or sensory deficits, no bowel or bladder incontinence. PHYSICAL EXAMINATION: VITAL SIGNS: The patient's blood pressure is 132/73, pulse 73, respirations 18, temperature is 98.1 degrees Fahrenheit, height is 6 feet 2 inches, weight is 256 pounds. GENERAL: The patient is awake, alert, oriented, appropriate, very pleasant demeanor. HEENT: Shows normocephalic, atraumatic. Extraocular movements are intact and symmetrical. Oral cavity: Mucous membranes moist and pink. Dentition is intact. NECK: Shows anterior throat supple without palpable lymphadenopathy noted. Swallow reflex symmetrical. CHEST: Shows normal on inspection. Breath sounds are clear bilaterally. HEART: Shows S1, S2 clear. No murmurs auscultated. ABDOMEN: Soft, nontender, nondistended. BACK: Shows spine grossly in the midline. Normal appearing thoracic kyphosis and flattening of lumbar lordotic curvature with well-healed surgical scar. Lumbar paraspinous muscle shows symmetrical on inspection, on palpation shows some moderate tenderness diffusely bilaterally, but only diffusely without significant radiation. The patient has good rotational motion of lumbar spine, both laterally as well as extension and flexion without significant increase in pain. EXTREMITIES: The patient's lower extremities show deep tendon reflexes 1+ in the patellar and tendo-calcaneus tendons. Motor exam is 5/5 with dorsiflexion, extension, quadriceps and hamstring flexion symmetrical. Peripheral pulses are 1+ posterior tibia. No peripheral edema is noted bilaterally. Options were discussed with the patient. The patient's old chart was reviewed as his current medication regimen updated. Current review of systems updated today as well. We will proceed with a first in this series of lumbar epidural steroid injection today with fluoroscopic guidance. Risks were discussed including but not limited to bleeding, infection, possibility of epidural hematoma, subsequent neurological compromise, dural puncture, headaches, spinal cord and/or nerve damage, side effects of steroid medication and poor results regarding pain control. The patient understands and wished to proceed. The patient will return to the clinic in approximately 2 weeks for followup. He was counseled on return appointment, activity level and side effects to be aware of. DIAGNOSES: Lumbar radiculopathy with lumbar degenerative disk disease and lumbar post-laminectomy syndrome. PROCEDURE: Lumbar epidural steroid injection, translaminar approach L5-S1 level using C-arm fluoroscopic guidance under sterile prep and drape using local anesthetic. MEDICATION INJECTED: A total of 120 mg Depo-Medrol plus 10 mL of preservative-free normal saline and 2 mL of contrast. CONDITION AT DISCHARGE: Stable. The patient tolerated procedure well, had no complications. JAIMEE URIARTE MD DR: TRACEY/ely JOB#: [id number] / [id number]
== END | disposition home or self-care (01) ==
LOC: PNCL 07:51
PROVIDERS: ATTEND Anesthesiology
DX: M51.16 Intervertebral disc disorders with radiculopathy, lumbar region (principal); M96.1 Postlaminectomy syndrome, not elsewhere classified; M17.11 Unilateral primary osteoarthritis, right knee; M46.1 Sacroiliitis, not elsewhere classified; M70.61 Trochanteric bursitis, right hip; Z79.899 Other long term (current) drug therapy; Z88.8 Allergy status to other drugs, medicaments and biological substances
CPT/HCPCS: 62323; J1030; J1040; Q9965